=== PATIENT | female | born 2000 | race Caucasian/White ===

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

== ENCOUNTER → 2020-06-04 | Outpatient (CLI) | payer BC, OTHER | LOC: CARD 15:42 | PROVIDERS: ATTEND Family Medicine | DX: R00.0 Tachycardia, unspecified (principal); R42 Dizziness and giddiness | CPT/HCPCS: 93005 ==

== ENCOUNTER → 2020-06-05 | Outpatient (CLI) | payer OTHER | LOC: CARD 11:24 | PROVIDERS: ATTEND Family Medicine | DX: R00.0 Tachycardia, unspecified (principal) | CPT/HCPCS: 93306 ==

== ENCOUNTER → 2020-06-06 | Outpatient (CLI) | payer OTHER ==
[2020-06-06 10:14] LABS: BASOPHILS % (AUTO) 1 % (0-10); EOSINOPHILS # (AUTO) 0.1 10^3/uL (0.0-0.3); EOSINOPHILS % (AUTO) 2 % (0-10); HEMATOCRIT 39 % (35-52); HEMOGLOBIN 12.8 G/DL (11.5-16.0); LYMPHOCYTES # (AUTO) 1.4 X 10^3 (1.0-4.0); LYMPHOCYTES % (AUTO) 26 % (12-44); MEAN CORPUSCULAR HEMOGLOBIN 29 PG (25-34); MEAN CORPUSCULAR HGB CONC 33 G/DL (32-36); MEAN CORPUSCULAR VOLUME 87 FL (80-99); MEAN PLATELET VOLUME 9.5 FL (7.4-10.4); MONOCYTES # (AUTO) 0.4 X 10^3 (0.0-1.0); MONOCYTES % (AUTO) 8 % (0-12); NEUTROPHILS # (AUTO) 3.3 X 10^3 (1.8-7.8); NEUTROPHILS % (AUTO) 63 % (42-75); PLATELET COUNT 289 10^3/uL (130-400); RED CELL DISTRIBUTION WIDTH 12.8 % (10.0-14.5); WHITE BLOOD COUNT 5.2 10^3/uL (4.3-11.0)
[2020-06-06 10:32] LABS: ALANINE AMINOTRANSFERASE 12 U/L (0-55); ALBUMIN 4.3 GM/DL (3.2-4.5); ALKALINE PHOSPHATASE 68 U/L (40-136); BILIRUBIN,TOTAL 0.4 MG/DL (0.1-1.0); BUN/CREATININE RATIO 11; CALCIUM 9.5 MG/DL (8.5-10.1); CARBON DIOXIDE 23 MMOL/L (21-32); CHLORIDE 106 MMOL/L (98-107); GFR ESTIMATED > 60; GLUCOSE 87 MG/DL (70-105); POTASSIUM 3.9 MMOL/L (3.6-5.0); SODIUM 138 MMOL/L (135-145); TOTAL PROTEIN 7.9 GM/DL (6.4-8.2)
--- NOTE | 2020-06-06 10:50 | Diagnostic Imaging Report ---
INDICATION: Palpitations and tachycardia as well as chest pain. Time of exam 10:35 AM No prior studies are available for comparison. The heart size is normal. The pulmonary vascularity is unremarkable. The lungs are clear. No infiltrate, effusion or pneumothorax is detected. Impression: No acute cardiopulmonary process is detected. Dictated by: Dictated on workstation # [id number]
== END ==
LOC: RAD 09:54
PROVIDERS: ATTEND Internal Medicine Cardiovascular Disease
DX: R00.2 Palpitations (principal); R00.0 Tachycardia, unspecified; R55 Syncope and collapse; R07.9 Chest pain, unspecified
CPT/HCPCS: 36415; 71046; 80053; 84443; 85025; 85379

== ENCOUNTER 2020-06-19 11:02 | Outpatient (CLI) | payer OTHER ==
[2020-06-19] VITALS (23 sets, daily range): BP systolic 72–120; BP diastolic 52–88
[~2020-06-19] VITALS: Ht 165 cm; Wt 52.0 kg
[2020-06-19] MEDS ORDERED: NS IV 1000 ML 1,000 ML ONE (11:07)
[2020-06-19] MEDS ORDERED: NS IV 1000 ML 1,000 ML IV SCH (11:15)
--- NOTE | 2020-06-19 12:14 | Cardiology Tilt Table Test ---
Cardiology-Tilt Table Test Tilt Table Test Date 06/19/20 Baseline Vitals Vital Signs Date Time Temp Pulse Resp B/P (MAP) Pulse Ox O2 Delivery O2 Flow Rate FiO2 06/19/20 11:22 36.8 131 16 119/74 (89) 100 Room Air Vital Signs VS - Last 72 Hours, by Label 06/19/20 06/19/20 06/19/20 06/19/20 11:22 11:38 11:39 11:40 Temp 36.8 Pulse 131 151 146 158 Resp 16 16 16 16 B/P (MAP) 119/74 (89) 114/84 (94) 119/81 (94) 117/88 (98) Pulse Ox 100 100 100 100 O2 Delivery Room Air Room Air Room Air Room Air 06/19/20 06/19/20 06/19/20 06/19/20 11:42 11:44 11:45 11:48 Pulse 144 149 149 149 Resp 16 16 16 16 B/P (MAP) 113/75 (88) 120/76 (91) 106/66 (79) 117/57 (77) Pulse Ox 100 100 100 99 O2 Delivery Room Air Room Air Room Air Room Air 06/19/20 06/19/20 06/19/20 06/19/20 11:50 11:52 11:55 11:55 Pulse 151 137 158 149 Resp 16 16 16 16 B/P (MAP) 99/55 (70) 101/62 (75) 94/58 (70) 99/62 (74) Pulse Ox 100 100 99 99 O2 Delivery Room Air Room Air Room Air Room Air 06/19/20 06/19/20 06/19/20 06/19/20 11:57 11:58 11:59 12:00 Pulse 151 146 140 138 Resp 16 16 16 16 B/P (MAP) 98/62 (74) 97/78 (84) 96/61 (73) 89/60 (70) Pulse Ox 99 99 100 100 O2 Delivery Room Air Room Air Room Air Room Air 06/19/20 06/19/20 06/19/20 06/19/20 12:01 12:02 12:03 12:04 Pulse 140 142 142 146 Resp 16 16 16 16 B/P (MAP) 103/52 (69) 72/61 (65) 85/58 (67) 94/67 (76) Pulse Ox 100 100 100 100 O2 Delivery Room Air Room Air Room Air Room Air 06/19/20 06/19/20 06/19/20 06/19/20 12:05 12:06 12:07 12:08 Pulse 147 135 137 135 Resp 16 16 16 16 B/P (MAP) 93/56 (68) 97/60 (72) 99/70 (80) 104/56 (72) Pulse Ox 100 100 100 100 O2 Delivery Room Air Room Air Room Air Room Air Patient was tilted to 75 degrees for [10] minutes, then returned to supine position, given [2] sublingual nitroglycerin tablets, then tilted again to 75 degrees for [15] minutes. During test, patient was: symptomatic (with dizziness with HR in the 160's to 170's) In Conclusion;: Negative Tilt Table Test Baseline EKG was inappropriate sinus tachycardia with borderline hypotension. Will continue to use low dose beta scott and monitor tolerance and response. This is Eduarda Castro PA-C, as a scribe for Dr. Diaz. EDUARDA LUX Jun 19, 2020 12:14
== END 2020-06-19 12:20 | disposition home or self-care (01) ==
LOC: CARD 11:02
PROVIDERS: ATTEND Physician Assistant
DX: R55 Syncope and collapse (principal); R42 Dizziness and giddiness
CPT/HCPCS: 93660

== ENCOUNTER → 2021-07-18 | Outpatient (CLI) | payer BC, OTHER ==
--- NOTE | 2021-07-18 10:08 | Diagnostic Imaging Report ---
PROCEDURE: US Thyroid. TECHNIQUE: Multiple real-time grayscale images were obtained of the thyroid in various projections. INDICATION: Right-sided lump. FINDINGS: Right lobe of thyroid measures 5.1 x 1.4 x 1.2 cm and left lobe measures 3.6 x 1.1 x 1.1 cm. Isthmus is 3 mm in thickness. There is a hypoechoic complex mass in the lower pole of the right lobe of the thyroid measuring 1.6 x 1.1 x 0.9 cm. Punctate echogenicities are noted which may represent calcifications. Left lobe is unremarkable. IMPRESSION: Complex nodule lower pole right lobe thyroid with microcalcifications. Fine-needle aspiration would be recommended for further evaluation. Dictated by: Dictated on workstation # [id number]
== END ==
LOC: RAD 09:00
PROVIDERS: ATTEND Family Medicine
DX: E04.1 Nontoxic single thyroid nodule (principal)
CPT/HCPCS: 76536

== ENCOUNTER → 2021-07-23 | Outpatient (CLI) | payer BC ==
[2021-07-23] MEDS: LIDOCAINE 1% INJ 20 ML 20 ML VIAL INJ ONE (11:56)
[2021-07-23] MEDS: LIDOCAINE 1% INJ 20 ML 20 ML VIAL ONE (12:23)
--- NOTE | 2021-07-23 12:53 | Diagnostic Imaging Report ---
Indication: Right lobe thyroid nodule. Patient presents for ultrasound guided fine-needle aspiration biopsy. Patient brought to the procedure room placed on the bed in the supine position. Ultrasound imaging of the right neck was performed to evaluate appropriate entry site. The right neck was then prepped and draped in usual sterile fashion. Small amount 1% lidocaine was utilized for local anesthesia. A total of 4 passes were made into the hypoechoic nodule right lobe of thyroid utilizing 25-gauge needles and final aspiration technique. A single pass was made with a Rotex needle and a biopsy was performed. Patient tolerated the procedure well and left the department in stable condition. IMPRESSION: Successful ultrasound guided aspiration and Rotex biopsy of right lobe thyroid nodule. Pathology results are currently pending. Dictated by: Dictated on workstation # [id number]
== END ==
LOC: RAD 11:30
PROVIDERS: ATTEND Family Medicine
DX: E04.1 Nontoxic single thyroid nodule (principal)
CPT/HCPCS: 10005